=== PATIENT | female | born 1990 | race Caucasian/White ===

== ENCOUNTER 2020-06-02 09:32 | Outpatient (REF) | payer OTHER, SELFPAY ==
[2020-06-02 09:50] LABS: COVID-19 Test Negative (Negative); IDNOW Serial# 55D5AD1C
== END 2020-06-02 09:33 | disposition home or self-care (01) ==
LOC: HO.EMPCOV 09:32
PROVIDERS: Visit Provider Internal Medicine
DX: Z20.822 Contact with and (suspected) exposure to COVID-19 (principal)
CPT/HCPCS: 36415; 87635; C9803

== ENCOUNTER 2021-01-05 11:21 | Outpatient (REF) | payer OTHER, SELFPAY | END 2021-01-05 11:22 | disposition home or self-care (01) | LOC: HO.LNP 11:21 | PROVIDERS: Visit Provider Hospitalist | DX: J01.90 Acute sinusitis, unspecified (principal); Z20.822 Contact with and (suspected) exposure to COVID-19 | CPT/HCPCS: U0003; U0005 ==